=== PATIENT | female | born 2000 | race Asian ===

== ENCOUNTER 2023-06-08 14:28 | Emergency (ER) | payer MEDICAID ==
[~2023-06-08] VITALS: Ht 160 cm; Wt 54.4 kg
--- NOTE | 2023-06-08 14:30 | NUR ---
RECEIVED PT 22 YRS FEMALE WALKING IN C/O PNCURE WOUND ON RT FOOT FROM STING RAY NEEDLE NO BLEEDING SKIN CARE DONE
[2023-06-08] MEDS ORDERED: IBUPROFEN 600 MG TABLET PO ONE (15:00)
[2023-06-08] MEDS ORDERED: TDAP [DIPH/PERTUSSIS/TET] 0.5 ML VIAL IM ONE ×2 (15:00→15:33)
--- NOTE | 2023-06-08 15:21 | NUR ---
Ailyn hoyos in ED - 06/08/23 at 1524 by KEVIN Patient discharged to home in stable condition. Written and verbal after care instructions given. Patient verbalizes understanding of instruction.
[2023-06-08] MEDS ORDERED: IBUPROFEN 600 MG TABLET ONE (15:34)
[2023-06-08] MEDS ORDERED: IBUP-1953 PO (16:30)
--- NOTE | 2023-06-08 16:41 | NUR ---
AWAITING DIPOSITION OF PATIENT BY .
--- NOTE | 2023-06-08 17:08 | NUR ---
Patient discharged to home in stable condition. Written and verbal after care instructions given. Patient verbalizes understanding of instruction.
[2023-06-08 17:41] VITALS: BP 90/76; TEMP 98; O2SAT 100
== END 2023-06-08 17:40 | disposition home or self-care (01) ==
LOC: ER 14:42
DX: S91.331A Puncture wound without foreign body, right foot, initial encounter (principal); X58.XXXA Exposure to other specified factors, initial encounter; Y92.89 Other specified places as the place of occurrence of the external cause; Y93.89 Activity, other specified; Y99.8 Other external cause status
CPT/HCPCS: 73630-TC; 90715